=== PATIENT | male | born 1960 | race Caucasian/White ===

== ENCOUNTER 2017-11-29 16:46 | Emergency (ER) | payer OTHER ==
[~2017-11-29] VITALS: Ht 165.1 cm; Wt 88.5 kg
[2017-11-29] MEDS ORDERED: LOSARTAN POTASS50 MG PO (16:52)
[2017-11-29] MEDS ORDERED: BUPROPION HCL75 MG PO (16:55)
== END 2017-11-29 19:46 | disposition home or self-care (01) ==
LOC: ER 16:46
DX: M72.2 Plantar fascial fibromatosis (principal)